=== PATIENT | male | born 1990 | race Caucasian/White ===

== ENCOUNTER 2021-12-06 21:23 | Emergency (ER) | payer MEDICAID ==
[~2021-12-06] VITALS: Ht 175.3 cm; Wt 82.0 kg
[2021-12-06 23:38] LABS: HEMATOCRIT. 43.3 % (42.0-52.0); HEMOGLOBIN. 14.8 g/dL (14.0-18.0); MEAN CORPUSCULAR HEMOGLOBIN 30.6 pg (28.0-32.0); MEAN CORPUSCULAR VOLUME 89.4 fL (80.0-94.0); MEAN PLATELET VOLUME 7.3 fl (7.4-10.4); PLATELET 366 x1000/uL (130-400); RED BLOOD CELL COUNT 4.84 mill/uL (4.7-6.1)
[2021-12-06 23:55] LABS: ETHANOL BLOOD < 10 mg/dL
[2021-12-07 00:23] LABS: PLATELET ESTIMATE NORMAL
[2021-12-07 00:36] LABS: CHLORIDE 105 mEq/L (98-107)
[2021-12-07] MEDS ORDERED: NALO4SPR BOTHNSTRLS (00:44)
[2021-12-07 01:16] VITALS: BP 112/65
[2021-12-07 01:30] LABS: *BARBITURATES SCREEN URINE NEGATIVE (NEGATIVE); *BENZODIAZEPINES SCREEN URINE NEGATIVE (NEGATIVE); *COCAINE SCREEN URINE NEGATIVE (NEGATIVE)
[2021-12-07 01:31] LABS: *AMPHETAMINES SCREEN URINE PRESUMTIVE POSITIVE (NEGATIVE); CANNABINOID URINE SCREEN PRESUMTIVE POSITIVE (NEGATIVE); METHADONE URINE SCREEN NEGATIVE (NEGATIVE); OPIATES URINE SCREEN NEGATIVE (NEGATIVE); PHENCYCLIDINE URINE SCREEN NEGATIVE (NEGATIVE)
== END 2021-12-07 02:04 | disposition home or self-care (01) ==
LOC: ER 21:23
DX: R41.82 Altered mental status, unspecified (principal); R53.1 Weakness; F15.10 Other stimulant abuse, uncomplicated; F12.10 Cannabis abuse, uncomplicated
CPT/HCPCS: 36415; 80053; 80305; 80320; 85025; 93005; 99284; G0480